=== PATIENT | male | born 1980 | race Caucasian/White ===

== ENCOUNTER 2018-12-02 22:23 | Emergency (ER) | payer OTHER ==
--- NOTE | 2018-12-02 23:37 | EDM.PDOC ---
ED HPI GENERAL MEDICAL PROBLEM - General Chief Complaint: Respiratory Problem Stated Complaint: SOB,DIZZINESS,NAUSEA Time Seen by Provider: 12/02/18 23:00 Source of Information: Reports: Patient, Family History Limitations: Reports: No Limitations - History of Present Illness INITIAL COMMENTS - FREE TEXT/NARRATIVE: 38-year-old male was developing some upper abdominal burning sensation, took a Prilosec but it wasn't helping and then he started getting some tingling in his arms, lightheaded, felt like he couldn't breathe, and couldn't lay still. After about 20 minutes of feeling very uneasy he decided to come in and get checked. This has been happening on a recurring basis for the past year and a half. Onset: Sudden Duration: Hour(s): (Symptoms lasted for about an hour and a half) Context: Denies: Trauma Associated Symptoms: Reports: Diaphoresis, Malaise, Weakness, Other (Dizziness and some paresthesias of the extremities). Denies: Confusion, Chest Pain - Related Data Allergies Allergy/AdvReac Type Severity Reaction Status Date / Time Penicillins Allergy Hives Verified 12/02/18 23:08 Home Meds: Home Meds Omeprazole 20 mg PO DAILY PRN 12/02/18 [History] Past Medical History Respiratory History: Reports: Sleep Apnea Gastrointestinal History: Reports: GERD Endocrine/Metabolic History: Reports: Obesity/BMI 30+ - Infectious Disease History Infectious Disease History: Reports: Chicken Pox - Past Surgical History GI Surgical History: Reports: Hernia, Inguinal Social & Family History - Tobacco Use Tobacco Use Comment: not in 5 years - Caffeine Use Caffeine Use: Reports: Energy Drinks, Soda - Recreational Drug Use Recreational Drug Use: No ED ROS GENERAL - Review of Systems Review Of Systems: See Below Constitutional: Reports: Malaise. Denies: Fever, Chills HEENT: Reports: No Symptoms Respiratory: Reports: Shortness of Breath Cardiovascular: Denies: Chest Pain GI/Abdominal: Denies: Abdominal Pain, Nausea, Vomiting : Reports: No Symptoms Skin: Reports: Diaphoresis Neurological: Reports: Paresthesia (Especially the extremities) Psychiatric: Reports: Anxiety ED EXAM, GENERAL - Physical Exam Exam: See Below Exam Limited By: No Limitations General Appearance: Alert, No Apparent Distress Eye Exam: Bilateral Eye: Normal Inspection Respiratory/Chest: No Respiratory Distress, Lungs Clear Cardiovascular: Normal Peripheral Pulses, Regular Rate, Rhythm GI/Abdominal: Non-Tender Extremities: Normal Inspection Neurological: Alert, Oriented Psychiatric: Normal Affect, Normal Mood Skin Exam: Warm, Dry Course - Vital Signs Last Recorded V/S: Last Vital Signs Temp 97.7 F 12/02/18 23:07 Pulse 71 12/02/18 23:07 Resp 13 12/02/18 23:07 BP 176/93 H 12/02/18 23:07 Pulse Ox 94 L 12/02/18 23:07 - Re-Assessments/Exams Free Text/Narrative Re-Assessment/Exam: 12/03/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 Patient seems to be having some type of recurring anxiety or hyperventilation issue with some vasovagal component. When he returns home next week he's going to see his primary provider about a stress test and further evaluation. He's had these episodes several times over the past year and has been worked up by his primary provider. We discussed possibly anti-anxiety medications and he is considering trying CBD oil. Departure - Departure Time of Disposition: 00:02 Disposition: Home, Self-Care 01 Clinical Impression: Vasovagal episode - Discharge Information Instructions: Shortness of Breath, Adult, [id number] Referrals: PCP,None [Primary Care Provider] - Forms: ED Department Discharge Care Plan Goals: Continue with regular omeprazole, activity as tolerated, and consider rechecking with your regular doctor for a stress test. CBD oil may be worthwhile. Return anytime if worsening or concerns.
== END 2018-12-03 00:01 | disposition home or self-care (01) ==
LOC: JP.ED 22:23
DX: R55 Syncope and collapse (principal); K21.9 Gastro-esophageal reflux disease without esophagitis; E66.9 Obesity, unspecified; Z68.32 Body mass index [BMI] 32.0-32.9, adult; Z88.0 Allergy status to penicillin; Z79.899 Other long term (current) drug therapy
CPT/HCPCS: 99283